=== PATIENT | female | born 1945 | race Caucasian/White ===

== ENCOUNTER 2020-01-15 16:57 | Emergency (ER) | payer OTHER ==
[~2020-01-15] VITALS: Ht 165.1 cm; Wt 68.0 kg
[~2020-01-15 16:57] MED LIST: CETI5 PO; ESTROVEN 155 M155 MG; MECL25 PO; [UNRECOGNIZED DRUG - OTHER]
[2020-01-15 17:26] LABS: BASOPHILS ABSOLUTE AUTO 0.05 K/mm3 (0.00-0.23); BASOPHILS PERCENT AUTO 1 % (0-2); EOSINOPHILS ABSOLUTE AUTO 0.01 K/mm3 (0.00-0.68); EOSINOPHILS PERCENT AUTO 0 % (0-6); Hematocrit 38.5 % (33.0-51.0); Hemoglobin 12.6 g/dL (11.5-16.0); IMMATURE GRAN ABSOLUTE AUTO 0.05 K/mm3 (0.00-0.10); IMMATURE GRAN PERCENT AUTO 1 % (0-1); LYMPHOCYTES ABSOLUTE AUTO 0.99 K/mm3 (0.84-5.20); LYMPHOCYTES PERCENT AUTO 10 % (21-46); MONOCYTES ABSOLUTE AUTO 0.45 K/mm3 (0.16-1.47); MONOCYTES PERCENT AUTO 5 % (4-13); Mean Corpuscular HGB 29.8 pg (26.0-34.0); Mean Corpuscular HGB Conc 32.7 g/dL (31.5-36.5); Mean Corpuscular Volume 91 fL (80-100); Mean Platelet Volume 9.4 fL (9.1-12.4); NEUTROPHILS ABSOLUTE AUTO 8.55 K/mm3 (1.96-9.15); NEUTROPHILS PERCENT AUTO 85 % (41-73); Platelet Count 201 K/mm3 (150-400); RDW Standard Deviation 46.9 fL (35.1-46.3); Red Blood Cell Count 4.23 M/mm3 (3.80-5.20)
[2020-01-15 17:45] LABS: Alanine Aminotransfer (ALT/SGP 23 U/L (12-78); Albumin, Blood 3.6 g/dL (3.4-5.0); Albumin/Globulin Ratio 1.1 (0.8-1.8); Alk Phos 117 U/L (50-136); Anion Gap 8 mmol/L (6-16); Aspartate Aminotrans (AST/SGOT 18 U/L (12-37); Bilirubin, Total 0.3 mg/dL (0.1-1.0); Blood Urea Nitrogen 18 mg/dL (8-24); Bun/Creatinine Ratio 21.3 (12.0-20.0); CO2, Blood 24 mmol/L (21-32); Calcium, Blood 8.6 mg/dL (8.5-10.1); Chloride, Blood 108 mmol/L (98-108); Creatinine, Blood 0.84 mg/dL (0.40-1.00); Globulin, Blood 3.3 g/dL (2.2-4.0); Glomerular Filtration Rate >60 (60-); Glucose, Blood 155 mg/dL (70-99); Potassium, Blood 3.5 mmol/L (3.5-5.5); Sodium, Blood 140 mmol/L (136-145); Total Protein, Blood 6.9 g/dL (6.4-8.2)
[2020-01-15 17:52] LABS: Troponin I <0.015 ng/mL (0.000-0.040)
[2020-01-15 18:02] LABS: Source, Urine Clean Catch
[2020-01-15 18:11] LABS: Appearance, Urine Hazy (Clear); Bilirubin, Urine Neg (Neg); Blood, Urine 4+ (Neg); Color, Urine Yellow (P-Yellow); Glucose Qualitative, Urine Neg (Neg); Ketones, Urine 1+ (Neg); Leukocyte Esterase, Urine 3+ (Neg); Nitrite, Urine Pos (Neg); Protein, Urine 3+ (Neg); Urobilinogen, Urine NORM (Normal)
[2020-01-15 18:19] LABS: White Blood Cells, Urine TNTC /hpf (0-5)
[2020-01-15 18:20] LABS: Bacteria Few /hpf; Squamous Epithelial Cells Rare /hpf (Few)
[2020-01-15] MEDS ORDERED: CEFP200 PO ×2 (20:24→20:25)
== END 2020-01-15 20:44 | disposition home or self-care (01) ==
LOC: ER 16:57
PROVIDERS: Emergency Medicine; Physician Assistant
DX: A41.9 Sepsis, unspecified organism (principal); N39.0 Urinary tract infection, site not specified; Z20.828 Contact with and (suspected) exposure to other viral communicable diseases; Z88.5 Allergy status to narcotic agent
CPT/HCPCS: 36415; 71045; 74176; 80053; 81001; 83605; 83690; 84443; 84484; 85025; 87040; 87077; 87086; 87186; 93005; 93010; 96361; 96365; 96375; 99285-25; A9270-GY; J0696; J1885; J7030; U0002

== ENCOUNTER → 2020-04-27 | Outpatient (CLI) | payer OTHER ==
[~2020-04-27] MED LIST changes: +CEFP200 PO
[2020-04-27 13:16] LABS: Source, Urine Clean Catch
[2020-04-27 17:44] LABS: Bilirubin, Urine Neg (Neg); Blood, Urine Neg (Neg); Glucose Qualitative, Urine Neg (Neg); Ketones, Urine 1+ (Neg); Leukocyte Esterase, Urine Neg (Neg); Nitrite, Urine Neg (Neg); Protein, Urine Neg (Neg); Urobilinogen, Urine NORM (Normal)
[2020-04-27 17:49] LABS: Appearance, Urine Clear (Clear); Color, Urine Yellow (P-Yellow)
== END ==
LOC: LAB SHORT 13:12 → LAB 13:12
PROVIDERS: Family Medicine
DX: R30.9 Painful micturition, unspecified (principal)
CPT/HCPCS: 81003

== ENCOUNTER 2021-02-17 17:33 | Emergency (ER) | payer OTHER ==
[~2021-02-17] VITALS: Ht 165.1 cm; Wt 61.2 kg
[2021-02-17 18:54] LABS: BASOPHILS ABSOLUTE AUTO 0.05 K/mm3 (0.00-0.23); BASOPHILS PERCENT AUTO 0 % (0-2); EOSINOPHILS PERCENT AUTO 0 % (0-6); Hematocrit 39.3 % (33.0-51.0); Hemoglobin 13.4 g/dL (11.5-16.0); IMMATURE GRAN ABSOLUTE AUTO 0.09 K/mm3 (0.00-0.10); IMMATURE GRAN PERCENT AUTO 1 % (0-1); LYMPHOCYTES ABSOLUTE AUTO 1.08 K/mm3 (0.84-5.20); LYMPHOCYTES PERCENT AUTO 6 % (21-46); MONOCYTES ABSOLUTE AUTO 1.05 K/mm3 (0.16-1.47); MONOCYTES PERCENT AUTO 6 % (4-13); Mean Corpuscular HGB 29.7 pg (26.0-34.0); Mean Corpuscular HGB Conc 34.1 g/dL (31.5-36.5); Mean Corpuscular Volume 87 fL (80-100); NEUTROPHILS ABSOLUTE AUTO 15.45 K/mm3 (1.96-9.15); NEUTROPHILS PERCENT AUTO 87 % (41-73); Platelet Count 263 K/mm3 (150-400); RDW Coefficient Variation 13.4 % (11.7-14.2); RDW Standard Deviation 42.7 fL (35.1-46.3); Red Blood Cell Count 4.51 M/mm3 (3.80-5.20); White Blood Cell Count 17.72 K/mm3 (4.00-11.30)
[2021-02-17 18:58] LABS: Source, Urine Clean Catch
[2021-02-17 19:02] LABS: Appearance, Urine Cloudy (Clear); Bilirubin, Urine Neg (Neg); Blood, Urine 4+ (Neg); Color, Urine Yellow (P-Yellow); Glucose Qualitative, Urine Neg (Neg); Ketones, Urine Neg (Neg); Leukocyte Esterase, Urine 3+ (Neg); Nitrite, Urine Pos (Neg); Protein, Urine 2+ (Neg); Urobilinogen, Urine NORM (Normal)
[2021-02-17 19:11] LABS: Bacteria Many /hpf; Squamous Epithelial Cells Few /hpf (Few); White Blood Cells, Urine TNTC /hpf (0-5)
[2021-02-17 19:15] LABS: Albumin, Blood 3.7 g/dL (3.4-5.0); Bilirubin, Total 0.4 mg/dL (0.1-1.0); Bun/Creatinine Ratio 21.6 (12.0-20.0); Calcium, Blood 8.7 mg/dL (8.5-10.1); Creatinine, Blood 0.97 mg/dL (0.40-1.00); Globulin, Blood 3.8 g/dL (2.2-4.0); Potassium, Blood 2.9 mmol/L (3.5-5.5); Total Protein, Blood 7.5 g/dL (6.4-8.2)
[2021-02-17] MEDS ORDERED: ONDA4ODT SL (20:47)
[2021-02-17] MEDS ORDERED: CEFD300 PO (20:47)
[2021-02-17] MEDS ORDERED: K-Dur10 MEQ PO (20:47)
== END 2021-02-17 21:09 | disposition home or self-care (01) ==
LOC: ER 17:33
PROVIDERS: Physician Assistant
DX: N39.0 Urinary tract infection, site not specified (principal); N12 Tubulo-interstitial nephritis, not specified as acute or chronic; M54.5 Low back pain; E87.6 Hypokalemia; Z88.5 Allergy status to narcotic agent
CPT/HCPCS: 36415; 80053; 81001; 83690; 85025; 87077; 87086; 87186; 96365; 96375; 99284-25; A9270; J0696; J2405; J7030

== ENCOUNTER → 2021-06-04 | Outpatient (CLI) | payer OTHER ==
[~2021-06-04] MED LIST changes: +CEFD300 PO; +K-Dur10 MEQ PO; +ONDA4ODT SL
== END | disposition home or self-care (01) ==
LOC: LAB SHORT 14:23 → LAB 14:23
DX: R10.11 Right upper quadrant pain (principal)
CPT/HCPCS: 87338

== ENCOUNTER → 2021-11-06 | Outpatient (CLI) | payer OTHER | END | disposition home or self-care (01) | LOC: LAB SHORT 12:28 → LAB 12:28 | DX: N39.0 Urinary tract infection, site not specified (principal) | CPT/HCPCS: 87077; 87086; 87186 ==

== ENCOUNTER → 2022-04-26 | Outpatient (CLI) | payer OTHER | END | disposition home or self-care (01) | LOC: LAB SHORT 12:43 → LAB 12:43 | DX: N39.0 Urinary tract infection, site not specified (principal) | CPT/HCPCS: 87077; 87086; 87186 ==

== ENCOUNTER → 2024-09-30 | Outpatient (CLI) | payer OTHER | END | disposition home or self-care (01) | LOC: LAB SHORT 15:01 → LAB 15:01 | DX: N39.0 Urinary tract infection, site not specified (principal) | CPT/HCPCS: 87077; 87086; 87186 ==

== ENCOUNTER → 2025-02-13 | Outpatient (CLI) | payer OTHER | END | disposition home or self-care (01) | LOC: LAB SHORT 12:24 → LAB 12:24 | DX: N39.0 Urinary tract infection, site not specified (principal) | CPT/HCPCS: 87077; 87086; 87186 ==

== ENCOUNTER 2025-06-04 23:51 | Inpatient (IN) | payer OTHER ==
[~2025-06-04] VITALS: Ht 165.1 cm; Wt 82.4 kg
[2025-06-05] MEDS ORDERED: Ondansetron HCl 2 MG / ML 2ML Vial IV ONE (00:10)
[2025-06-05] MEDS ORDERED: HYDROmorphone HCl/Pf 1MG SYR IV ONE (00:10)
[2025-06-05] MEDS ORDERED: Ondansetron HCl 2 MG / ML 2ML Vial ONE (00:14)
[2025-06-05] MEDS ORDERED: HYDROmorphone HCl/Pf 1MG SYR ONE (00:14)
[2025-06-05 00:54] LABS: BASOPHILS ABSOLUTE AUTO 0.08 K/mm3 (0.00-0.23); BASOPHILS PERCENT AUTO 1 % (0-2); EOSINOPHILS ABSOLUTE AUTO 0.18 K/mm3 (0.00-0.68); EOSINOPHILS PERCENT AUTO 2 % (0-6); Hematocrit 38.5 % (33.0-51.0); Hemoglobin 12.6 g/dL (11.5-16.0); IMMATURE GRAN ABSOLUTE AUTO 0.08 K/mm3 (0.00-0.10); IMMATURE GRAN PERCENT AUTO 1 % (0-1); LYMPHOCYTES ABSOLUTE AUTO 2.83 K/mm3 (0.84-5.20); LYMPHOCYTES PERCENT AUTO 25 % (21-46); MONOCYTES ABSOLUTE AUTO 0.84 K/mm3 (0.16-1.47); MONOCYTES PERCENT AUTO 8 % (4-13); Mean Corpuscular HGB Conc 32.7 g/dL (31.5-36.5); Mean Corpuscular Volume 89 fL (80-100); NEUTROPHILS ABSOLUTE AUTO 7.24 K/mm3 (1.96-9.15); NEUTROPHILS PERCENT AUTO 64 % (41-73); NRBC ABSOLUTE 0.00 K/mm3 (0.00-0.02); NRBC Auto 0.0 /100 WBC (0.0-0.2); Platelet Count 260 K/mm3 (150-400); RDW Coefficient Variation 13.9 % (11.7-14.2); RDW Standard Deviation 45.6 fL (35.1-46.3)
[2025-06-05 01:07] LABS: Alanine Aminotransfer (ALT/SGP 35.0 U/L (12-78); Albumin, Blood 3.8 g/dL (3.4-5.0); Albumin/Globulin Ratio 1.2 (0.8-1.8); Anion Gap 7.0 mmol/L (3-11); Aspartate Aminotrans (AST/SGOT 32.0 U/L (12-37); Bilirubin, Total 0.4 mg/dL (0.1-1.0); Blood Urea Nitrogen 27.0 mg/dL (8-24); CO2, Blood 26.0 mmol/L (21-32); Calcium, Blood 8.8 mg/dL (8.5-10.1); Chloride, Blood 106.0 mmol/L (98-108); Creatinine, Blood 0.98 mg/dL (0.40-1.00); Globulin, Blood 3.2 g/dL (2.2-4.0); Glucose, Blood 144.0 mg/dL (70-99); Potassium, Blood 3.9 mmol/L (3.5-5.5); Sodium, Blood 135.0 mmol/L (136-145); Total Protein, Blood 7.0 g/dL (6.4-8.2)
[2025-06-05] MEDS ORDERED: Diazepam 5 MG / ML 2ML SYR IV ONE (02:00)
[2025-06-05 02:11] LABS: Prothrombin Time Results 10.9 Sec (9.7-11.5)
[2025-06-05] MEDS ORDERED: Ketorolac Tromethamine 15mg Vial IV ONE (02:20)
[2025-06-05] MEDS ORDERED: Morphine Sulfate 10 MG/ML 1MLSYR IV PRN (02:20)
[2025-06-05] MEDS ORDERED: Naloxone HCl 0.4MG / ML 1ML Vial IV PRN (03:20)
[2025-06-05] MEDS ORDERED: Ondansetron HCl 2 MG / ML 2ML Vial IV PRN (03:20)
[2025-06-05] MEDS ORDERED: FentaNYL Citrate 50 MCG/ML 2 ML Injection IV PRN (03:25)
[2025-06-05] MEDS ORDERED: FLU VACC TS2025(65UP)/MF59C/PF 45 MCG/0.5 ML SYRINGE IM SCH (04:10)
[2025-06-05] MEDS ORDERED: SPIR25 PO (04:13)
[2025-06-05] MEDS ORDERED: ROPI.25 PO (04:15)
[2025-06-05] MEDS ORDERED: ATOR10 PO (04:15)
[2025-06-05 04:17] VITALS: BP 159/71
[2025-06-05 04:55] LABS: BASOPHILS ABSOLUTE AUTO 0.05 K/mm3 (0.00-0.23); BASOPHILS PERCENT AUTO 0 % (0-2); EOSINOPHILS ABSOLUTE AUTO 0.01 K/mm3 (0.00-0.68); EOSINOPHILS PERCENT AUTO 0 % (0-6); Hematocrit 36.0 % (33.0-51.0); Hemoglobin 12.2 g/dL (11.5-16.0); IMMATURE GRAN ABSOLUTE AUTO 0.07 K/mm3 (0.00-0.10); IMMATURE GRAN PERCENT AUTO 1 % (0-1); LYMPHOCYTES ABSOLUTE AUTO 0.99 K/mm3 (0.84-5.20); LYMPHOCYTES PERCENT AUTO 7 % (21-46); MONOCYTES ABSOLUTE AUTO 0.54 K/mm3 (0.16-1.47); MONOCYTES PERCENT AUTO 4 % (4-13); Mean Corpuscular HGB Conc 33.9 g/dL (31.5-36.5); Mean Corpuscular Volume 89 fL (80-100); NEUTROPHILS ABSOLUTE AUTO 12.29 K/mm3 (1.96-9.15); NEUTROPHILS PERCENT AUTO 88 % (41-73); NRBC ABSOLUTE 0.00 K/mm3 (0.00-0.02); NRBC Auto 0.0 /100 WBC (0.0-0.2); Platelet Count 207 K/mm3 (150-400); RDW Coefficient Variation 14.0 % (11.7-14.2); RDW Standard Deviation 45.7 fL (35.1-46.3)
[2025-06-05 05:29] LABS: Alanine Aminotransfer (ALT/SGP 33.0 U/L (12-78); Albumin, Blood 3.5 g/dL (3.4-5.0); Albumin/Globulin Ratio 1.1 (0.8-1.8); Anion Gap 8.0 mmol/L (3-11); Aspartate Aminotrans (AST/SGOT 30.0 U/L (12-37); Bilirubin, Total 0.4 mg/dL (0.1-1.0); Blood Urea Nitrogen 27.0 mg/dL (8-24); CO2, Blood 25.0 mmol/L (21-32); Calcium, Blood 8.5 mg/dL (8.5-10.1); Chloride, Blood 107.0 mmol/L (98-108); Creatinine, Blood 0.85 mg/dL (0.40-1.00); Globulin, Blood 3.1 g/dL (2.2-4.0); Glucose, Blood 158.0 mg/dL (70-99); Magnesium, Blood 2.0 mg/dL (1.6-2.4); Potassium, Blood 4.0 mmol/L (3.5-5.5); Sodium, Blood 136.0 mmol/L (136-145); Total Protein, Blood 6.6 g/dL (6.4-8.2)
[2025-06-05 07:14] VITALS: BP 131/65
--- NOTE | 2025-06-05 07:41 | NUR ---
ARRIVAL TO UNIT/SHIFT SUMMARY NOC. PT ARRIVED TO SURGICAL UNIT ROOM 212 AT 0357. PT A/O X4. PT REPORTS PAIN 9/10 WHEN SPASMS OCCUR AND 4/10 WITHOUT SPASM. PT MEDICATED PER EMAR. PT TRANSFERED VIA SLIDER SHEET. PT ORIENTED TO ROOM/CALL LIGHT AND UNIT POLICIES/PROCEDURES. SPOUSE EDGAR AT BEDSIDE, LOVING AND ATTENTIVE. PT CHANGED INTO GOWN, REPOSITION, AND PUREWICK PLACED. PT MEDICATED WITH IV FENT AND ZANAFLEX WITH REPORTED IMPROVEMENT OF PAIN. PT MAKES NEEDS KNOWN, NPO ASIDE FROM SIP OF WATER FOR ZANAFLEX.
[2025-06-05 14:08] VITALS: BP 124/61
--- NOTE | 2025-06-05 18:27 | NUR ---
SHIFT SUMMARY ADMITTED FOR L HIP FX. PLAN FOR SURGERY TOMORROW. TOLERATING FOOD & FLUIDS WELL. PLAN FOR NPO @ 0000. OBTAINED ORDERS FOR BALDERAS CATHETER. PAIN CONTROLLED WELL PER EMAR. CURRENTLY RESTING IN BED w/CALL LIGHT IN REACH.
[2025-06-05 19:22] VITALS: BP 154/71
[2025-06-06] VITALS (14 sets, daily range): BP systolic 112–169; BP diastolic 48–76
--- NOTE | 2025-06-06 03:16 | NUR ---
NOC SUMMARY- PT C/O OF DISCOMFORT AMD MUSCLE SPASMS. PT TX PER SEP WITH SOME RELIEF. PT REPORTS STIFF NECK AND SHOULDER SORENESS. PT STATES SHE HAS NOT RESTED WELL. BALDERAS DRAINING TO GRAVITY. PT STAYED THE NIGHT WITH PT. PT HAS BEEN NPO SINCE MN. CALL LIGHT IN REACH.
[2025-06-06 04:59] LABS: BASOPHILS ABSOLUTE AUTO 0.04 K/mm3 (0.00-0.23); BASOPHILS PERCENT AUTO 0 % (0-2); EOSINOPHILS ABSOLUTE AUTO 0.07 K/mm3 (0.00-0.68); EOSINOPHILS PERCENT AUTO 1 % (0-6); Hematocrit 35.3 % (33.0-51.0); Hemoglobin 11.8 g/dL (11.5-16.0); IMMATURE GRAN ABSOLUTE AUTO 0.04 K/mm3 (0.00-0.10); IMMATURE GRAN PERCENT AUTO 0 % (0-1); LYMPHOCYTES ABSOLUTE AUTO 1.34 K/mm3 (0.84-5.20); LYMPHOCYTES PERCENT AUTO 13 % (21-46); MONOCYTES ABSOLUTE AUTO 0.65 K/mm3 (0.16-1.47); MONOCYTES PERCENT AUTO 6 % (4-13); Mean Corpuscular HGB Conc 33.4 g/dL (31.5-36.5); Mean Corpuscular Volume 89 fL (80-100); NEUTROPHILS ABSOLUTE AUTO 8.47 K/mm3 (1.96-9.15); NEUTROPHILS PERCENT AUTO 80 % (41-73); NRBC ABSOLUTE 0.00 K/mm3 (0.00-0.02); NRBC Auto 0.0 /100 WBC (0.0-0.2); Platelet Count 190 K/mm3 (150-400); RDW Coefficient Variation 14.0 % (11.7-14.2); RDW Standard Deviation 45.5 fL (35.1-46.3)
[2025-06-06 05:22] LABS: Anion Gap 8.0 mmol/L (3-11); Blood Urea Nitrogen 16.0 mg/dL (8-24); CO2, Blood 26.0 mmol/L (21-32); Calcium, Blood 8.1 mg/dL (8.5-10.1); Chloride, Blood 104.0 mmol/L (98-108); Creatinine, Blood 0.74 mg/dL (0.40-1.00); Glucose, Blood 146.0 mg/dL (70-99); Potassium, Blood 4.1 mmol/L (3.5-5.5); Sodium, Blood 134.0 mmol/L (136-145)
[2025-06-06] MEDS ORDERED: Tranexamic Acid 100 ML IV SCH (08:15)
[2025-06-06] MEDS ORDERED: Chlorhexidine Mouth Care 15 ML UDC MT SCH (08:15)
[2025-06-06] MEDS ORDERED: CeFAZolin Sodium 2,000 MG in NS 100 ML IV SCH (08:15)
[2025-06-06] MEDS ORDERED: Ropivacaine 0.5% HCl/Pf 123.125 MG,EPINEPHrine HCL 0.25 MG,Ketorolac Tromethamine 15 MG... INFIL SCH (08:15)
[2025-06-06] MEDS ORDERED: FentaNYL Citrate 50 MCG/ML 2 ML Injection ONE (15:46)
[2025-06-06] MEDS ORDERED: Rocuronium Bromide 10 MG/ML 5ML Injection IV ONE ×2 (15:47→17:09)
[2025-06-06] MEDS ORDERED: Dexamethasone Sod Phos 10 MG/ML 1ML VIAL ONE (16:03)
[2025-06-06] MEDS ORDERED: Ondansetron HCl 2 MG / ML 2ML Vial ONE (16:03)
[2025-06-06] MEDS ORDERED: ePHEDrine Sulfate 50 MG/ML 1ML Injection ONE (16:04)
[2025-06-06] MEDS ORDERED: HYDROmorphone HCl/Pf 1MG SYR ONE ×2 (16:31→17:14)
[2025-06-06] MEDS ORDERED: FentaNYL Citrate 50 MCG/ML 2 ML Injection IV PRN ×2 (16:50→16:55)
[2025-06-06] MEDS ORDERED: HYDROmorphone HCl/Pf 1MG SYR IV PRN ×2 (16:55)
[2025-06-06] MEDS ORDERED: Albuterol 2.5 MG/3 ML VIAL INH PRN (16:55)
[2025-06-06] MEDS ORDERED: Metoclopramide HCl 5MG / ML 2ML Vial IV PRN (16:55)
[2025-06-06] MEDS ORDERED: Phenylephrine HCl 100 MCG/ML-NS 10MLSYR (1MG/10ML) ONE (17:43)
[2025-06-06] MEDS ORDERED: Sugammadex Sodium 200 MG/2ML SDV (100 MG/ML) ONE (17:53)
--- NOTE | 2025-06-06 18:00 | NUR ---
SHIFT SUMMARY L HIP FX. PAIN CONTROLLED WELL PER EMAR TODAY. BALDERAS CATH IN PLACE DRAINING CLEAR YELLOW URINE. NPO PRIOR TO SURGERY. AWAITING ARRIVAL FROM SURGERY.
--- NOTE | 2025-06-06 19:04 | NUR ---
ARRIVAL TO SURG FLOOR TO FLOOR VIA HOSP BED. A&O x4, VSS. SLEEPY BUT AWAKENS ON COMMAND. L HIP w/PERNEO DRESSING - C/D/I. POLAR PACK IN PLACE. STATES NO PAIN AT THIS TIME. BALDERAS CATH IN PLACE DRAINING CLEAR YELLOW URINE TO GRAVITY. CALL LIGHT WITHIN REACH.
[2025-06-07] MEDS ORDERED: CeFAZolin Sodium 2,000 MG in NS 100 ML IV SCH
[2025-06-07 00:20] VITALS: BP 114/58
[2025-06-07 04:45] VITALS: BP 114/57
--- NOTE | 2025-06-07 04:52 | NUR ---
MITER SAWYER SUMMARY PT IS POD 0 FOR L HIP REPAIR. PT ARRIVED FROM PACU AT START OF SHIFT. WAS INITALLY QUITE DROWSY BUT HAS RETURNED TO BASELINE AND IS AAOX4. ARRIVED FROM PACU ON 4L O2 VIA NC AND HAS SINCE BEEN TITRATED DOWN TO 2L. ATTEMPTED RA BUT PT DID DESAT TO 80'S WHEN SLEEPING. BALDERAS CATH IN PLACE AND DRAINING DARIUS URINE. PRINEO DRESSING TO L HIP C/D/I. PT HAS HAD VERY MINIMAL PAIN TONIGHT AND HAS NOT REQUIRED ANY PAIN MEDS THUS FAR. VSS, WCTM.
[2025-06-07 05:14] LABS: BASOPHILS ABSOLUTE AUTO 0.01 K/mm3 (0.00-0.23); BASOPHILS PERCENT AUTO 0 % (0-2); EOSINOPHILS ABSOLUTE AUTO 0.00 K/mm3 (0.00-0.68); EOSINOPHILS PERCENT AUTO 0 % (0-6); Hematocrit 32.0 % (33.0-51.0); Hemoglobin 10.5 g/dL (11.5-16.0); IMMATURE GRAN ABSOLUTE AUTO 0.09 K/mm3 (0.00-0.10); IMMATURE GRAN PERCENT AUTO 1 % (0-1); LYMPHOCYTES ABSOLUTE AUTO 0.67 K/mm3 (0.84-5.20); LYMPHOCYTES PERCENT AUTO 5 % (21-46); MONOCYTES ABSOLUTE AUTO 0.66 K/mm3 (0.16-1.47); MONOCYTES PERCENT AUTO 5 % (4-13); Mean Corpuscular HGB Conc 32.8 g/dL (31.5-36.5); Mean Corpuscular Volume 90 fL (80-100); NEUTROPHILS ABSOLUTE AUTO 11.06 K/mm3 (1.96-9.15); NEUTROPHILS PERCENT AUTO 89 % (41-73); NRBC ABSOLUTE 0.00 K/mm3 (0.00-0.02); NRBC Auto 0.0 /100 WBC (0.0-0.2); Platelet Count 181 K/mm3 (150-400); RDW Coefficient Variation 13.9 % (11.7-14.2); RDW Standard Deviation 46.4 fL (35.1-46.3)
[2025-06-07 06:43] LABS: Alanine Aminotransfer (ALT/SGP 22.0 U/L (12-78); Albumin, Blood 2.7 g/dL (3.4-5.0); Albumin/Globulin Ratio 0.9 (0.8-1.8); Anion Gap 9.0 mmol/L (3-11); Aspartate Aminotrans (AST/SGOT 21.0 U/L (12-37); Bilirubin, Total 0.4 mg/dL (0.1-1.0); Blood Urea Nitrogen 19.0 mg/dL (8-24); CO2, Blood 26.0 mmol/L (21-32); Calcium, Blood 7.9 mg/dL (8.5-10.1); Chloride, Blood 105.0 mmol/L (98-108); Creatinine, Blood 0.77 mg/dL (0.40-1.00); Globulin, Blood 2.9 g/dL (2.2-4.0); Glucose, Blood 171.0 mg/dL (70-99); Potassium, Blood 4.3 mmol/L (3.5-5.5); Sodium, Blood 136.0 mmol/L (136-145); Total Protein, Blood 5.6 g/dL (6.4-8.2)
[2025-06-07 07:12] VITALS: BP 121/61
[2025-06-07] MEDS ORDERED: HYDROcodone 5-APAP 325 TAB PO PRN (07:25)
[2025-06-07] MEDS ORDERED: Polyethylene Glycol 3350 17 gm PO PRN (13:20)
[2025-06-07 15:26] VITALS: BP 120/56
[2025-06-07 19:48] VITALS: BP 114/62
[2025-06-08 03:40] VITALS: BP 125/64
[2025-06-08 04:32] LABS: BASOPHILS ABSOLUTE AUTO 0.05 K/mm3 (0.00-0.23); BASOPHILS PERCENT AUTO 0 % (0-2); EOSINOPHILS ABSOLUTE AUTO 0.11 K/mm3 (0.00-0.68); EOSINOPHILS PERCENT AUTO 1 % (0-6); Hematocrit 28.5 % (33.0-51.0); Hemoglobin 9.4 g/dL (11.5-16.0); IMMATURE GRAN ABSOLUTE AUTO 0.05 K/mm3 (0.00-0.10); IMMATURE GRAN PERCENT AUTO 0 % (0-1); LYMPHOCYTES ABSOLUTE AUTO 1.37 K/mm3 (0.84-5.20); LYMPHOCYTES PERCENT AUTO 12 % (21-46); MONOCYTES ABSOLUTE AUTO 0.76 K/mm3 (0.16-1.47); MONOCYTES PERCENT AUTO 7 % (4-13); Mean Corpuscular HGB Conc 33.0 g/dL (31.5-36.5); Mean Corpuscular Volume 90 fL (80-100); NEUTROPHILS ABSOLUTE AUTO 9.32 K/mm3 (1.96-9.15); NEUTROPHILS PERCENT AUTO 80 % (41-73); NRBC ABSOLUTE 0.00 K/mm3 (0.00-0.02); NRBC Auto 0.0 /100 WBC (0.0-0.2); Platelet Count 156 K/mm3 (150-400); RDW Coefficient Variation 14.3 % (11.7-14.2); RDW Standard Deviation 46.8 fL (35.1-46.3)
[2025-06-08 05:00] LABS: Anion Gap 6.0 mmol/L (3-11); Blood Urea Nitrogen 17.0 mg/dL (8-24); CO2, Blood 28.0 mmol/L (21-32); Calcium, Blood 7.9 mg/dL (8.5-10.1); Chloride, Blood 105.0 mmol/L (98-108); Creatinine, Blood 0.81 mg/dL (0.40-1.00); Glucose, Blood 150.0 mg/dL (70-99); Potassium, Blood 3.8 mmol/L (3.5-5.5); Sodium, Blood 135.0 mmol/L (136-145)
--- NOTE | 2025-06-08 05:20 | NUR ---
SHIFT SUMMARY A/OX4, 1P MIN ASSIST TO BATHROOM. C/O PAIN TO L. HIP, MEDICATED PER EMAR. DRESSING TO L. HIP C/D/I. NO ACUTE CHANGES AT THIS TIME.
[2025-06-08 07:22] VITALS: BP 122/71
[2025-06-08] MEDS ORDERED: DOCU100 PO (09:40)
[2025-06-08] MEDS ORDERED: HYDR1TAB94 PO ×2 (09:40→10:21)
[2025-06-08] MEDS ORDERED: ACET325 PO (09:40)
[2025-06-08] MEDS ORDERED: LORA10ER PO (09:41)
[2025-06-08] MEDS ORDERED: MIRALAX1714 PO (09:42)
[2025-06-08] MEDS ORDERED: ASPI81CH PO (11:14)
[2025-06-08] MEDS ORDERED: OMEP20ER PO (11:15)
--- NOTE | 2025-06-08 13:26 | NUR ---
ASSUMED CARE OF PT @0700 AXO4. VSS. L HIP PRINEO DRESSING CDI. PT UP IN CHAIR - CLOTHED. TOLERATED BREAKFAST WELL. VOIDING. FAMILY IN ROOM. PAIN MEDS ADMINISTERED PER EMAR. PT IS 1 ASSIST WITH FWW. DC ORDERS RECEIVED FOR HOME HEALTH. CALL MADE TO BY CARE MANAGEMENT. PRESCRIPTION RECEIVED FOR FWW, WALKER BROUGHT TO PT. DC INSTRUCTIONS PROVIDED, AQUACEL DRESSING PROVIDED FOR PRN CHANGE AT HOME. COLD PACK PACKED UP AND PROVIDED. IV PULLED. PT DC'D @4650.
== END 2025-06-08 12:27 | disposition home health service (06) | DRG 522 ==
LOC: ER 23:51 → SURS 06-05 03:07
PROVIDERS: Family Medicine; Hospitalist; Orthopaedic Surgery; Student in an Organized Health Care Education/Training Program; ADMIT Student in an Organized Health Care Education/Training Program
PROC: 0SRB04Z Replacement of Left Hip Joint with Ceramic on Polyethylene Synthetic Substitute, Open Approach (ICD-10-PCS; principal; 2025-06-06 14:00)
DX: S72.002A Fracture of unspecified part of neck of left femur, initial encounter for closed fracture (principal); D64.89 Other specified anemias; R73.03 Prediabetes; E78.5 Hyperlipidemia, unspecified; G25.81 Restless legs syndrome; M62.838 Other muscle spasm; D72.829 Elevated white blood cell count, unspecified; W01.0XXA Fall on same level from slipping, tripping and stumbling without subsequent striking against object, initial encounter; Y92.008 Other place in unspecified non-institutional (private) residence as the place of occurrence of the external cause; Z88.5 Allergy status to narcotic agent
CPT/HCPCS: 36415; 51702; 72170; 73502; 80048; 80053; 82947; 83036; 83735; 85025; 85610; 85730; 86850; 86900; 86901; 93005; 93010; 94762; 96374; 96375; 97110; 97116; 97161; 97165; 97530; 97535; 99285; A9270; C1776; J0690; J1100; J1171; J1885; J2371; J2405; J2704; J3010; J3360; J7120